=== PATIENT | female | born 1945 | race Caucasian/White ===

== ENCOUNTER 2017-03-13 20:15 | Emergency (ER) | payer MEDICARE, OTHER ==
[~2017-03-13] VITALS: Ht 177.8 cm; Wt 72.7 kg
[2017-03-13 20:25] VITALS: TEMP 97.3
[2017-03-13 20:58] LABS: BASO % 0.5 % (0.0-2.0); EOS # 0.1 (0.0-0.7); EOS % 1.4 % (0-4.0); GRAN # 3.7 (1.4-6.5); GRAN % 58.6 % (42.2-75.2); HEMOGLOBIN 14.1 g/dl (12.5-16.0); LYMPH # 1.8 (1.2-3.4); LYMPH % 28.5 % (20.0-51.0); MEAN CELL VOLUME 91 fl (80.0-100.0); MEAN CORPUSCULAR HEMOGLOBIN 30 pg (27.0-31.0); MEAN CORPUSCULAR HGB CONC 33 g/dl (33.0-37.0); MEAN PLATELET VOLUME 10.4 fl (7.4-10.4); MONO # 0.7 (0.1-0.6); MONO % 10.8 % (1.7-9.3); PLATELET COUNT 208 K/mm3 (130-400); RED BLOOD COUNT 4.74 M/mm3 (4.10-5.30); WHITE BLOOD COUNT 6.4 K/mm3 (4.8-10.8)
[2017-03-13 21:01] LABS: PROTHROMBIN TIME 11.9 SECONDS (9.7-12.8)
[2017-03-13 21:08] LABS: ALANINE AMINOTRANSFERASE 33 U/L (9-52); ALBUMIN 4.8 gm/dL (3.5-5.0); ALKALINE PHOSPHATASE 83 U/L (50-136); ANION GAP 11 mmol/L (7-16); BILIRUBIN,TOTAL 0.7 mg/dL (0.0-1.0); BLOOD UREA NITROGEN 22 mg/dL (7-17); CALCIUM 10.6 mg/dL (8.4-10.2); CARBON DIOXIDE 26 mmol/L (22-30); CHLORIDE 103 mmol/L (98-107); CREATININE, serum 0.91 mg/dL (0.52-1.25); GLUCOSE 104 mg/dL (74-106); LIPASE 226 U/L (23-300); POTASSIUM 3.6 mmol/L (3.4-5.0); SODIUM 140 mmol/L (137-145); TOTAL PROTEIN 7.7 gm/dL (6.4-8.2)
[2017-03-13 21:09] LABS: PARTIAL THROMBOPLASTIN TIME 29.7 SECONDS (26.0-37.0)
[2017-03-13 21:19] LABS: B-TYPE NATRIURETIC PEPTIDE 76 pg/mL (0-125)
[2017-03-13 21:20] LABS: TROPONIN-I < 0.012 ng/mL (0.000-0.034)
[2017-03-13] MEDS ORDERED: CLARITIN 1010 MG/TAB PO (21:20)
[2017-03-13] MEDS ORDERED: FLONASEALLERGY NS (21:21)
[2017-03-13 22:00] LABS: COLLECTION METHOD CLEAN CATCH
[2017-03-13 22:11] LABS: THYROID STIMULATING HORMONE 1.67 uIU/mL (0.465-4.680)
[2017-03-13 22:17] LABS: PH 5 (5-8); SQUAMOUS EPITHELIAL 0-2 /hpf; URINE APPEARANCE Clear; URINE BACTERIA Rare /hpf; URINE BILIRUBIN Negative (NEGATIVE); URINE BLOOD 1+ (NEGATIVE); URINE COLOR Yellow; URINE GLUCOSE Negative (NEGATIVE); URINE KETONE Negative (NEGATIVE); URINE LEUKOCYTE ESTERASE 2+ (NEGATIVE); URINE PROTEIN(semi-quant) Negative (NEGATIVE); URINE RBC 0-2 /hpf; URINE UROBILINOGEN Negative (NEGATIVE)
[2017-03-13] MEDS ORDERED: TOPROL XL 50MG50 MG PO (23:35)
[2017-03-13] MEDS ORDERED: CEFTIN500 MG PO (23:35)
[2017-03-13 23:40] VITALS: BP 114/72; PULSE 72
== END 2017-03-14 00:03 | disposition home or self-care (01) ==
LOC: COL.ER 20:15
PROVIDERS: Emergency Medicine
DX: I49.1 Atrial premature depolarization (principal); N39.0 Urinary tract infection, site not specified; Z98.890 Other specified postprocedural states

== ENCOUNTER → 2018-12-13 | Outpatient (CLI) | payer MEDICARE, OTHER ==
[~2018-12-13] MED LIST: CEFTIN500 MG PO; CLARITIN 1010 MG/TAB PO; FLONASEALLERGY NS; TOPROL XL 50MG50 MG PO
[2018-12-13 11:06] LABS: CREATININE, serum 0.76 (0.52-1.25)
== END ==
LOC: COL.LAB 10:27
DX: R10.32 Left lower quadrant pain (principal)

== ENCOUNTER → 2018-12-27 | Outpatient (CLI) | payer MEDICARE, OTHER | LOC: COL.RAD 12:57 | DX: N83.202 Unspecified ovarian cyst, left side (principal); R14.3 Flatulence; Z90.49 Acquired absence of other specified parts of digestive tract; Z90.710 Acquired absence of both cervix and uterus ==

== ENCOUNTER 2019-11-21 20:06 | Emergency (ER) | payer MEDICARE, OTHER ==
[~2019-11-21] VITALS: Ht 175.3 cm; Wt 72.7 kg
[2019-11-21 20:19] VITALS: TEMP 99.2
[2019-11-21 20:53] LABS: BASO % 0.3 % (0.0-2.0); EOS % 0.6 % (0-4.0); GRAN # 4.9 (1.4-6.5); GRAN % 71.7 % (42.2-75.2); HEMATOCRIT 41.7 % (37.0-47.0); HEMOGLOBIN 13.3 g/dl (12.5-16.0); LYMPH # 1.3 (1.2-3.4); LYMPH % 18.5 % (20.0-51.0); MEAN CELL VOLUME 91 fl (80.0-100.0); MEAN CORPUSCULAR HEMOGLOBIN 29 pg (27.0-31.0); MEAN CORPUSCULAR HGB CONC 32 g/dl (33.0-37.0); MEAN PLATELET VOLUME 10.1 fl (7.4-10.4); MONO # 0.6 (0.1-0.6); MONO % 8.6 % (1.7-9.3); PLATELET COUNT 194 K/mm3 (130-400); RED BLOOD COUNT 4.57 M/mm3 (4.10-5.30); REDCELL DISTRIBUTION WIDTH-CV 13.2 % (11.5-14.5)
[2019-11-21 21:35] LABS: ALANINE AMINOTRANSFERASE 15 U/L (4-34); ALBUMIN 4.4 gm/dL (3.5-5.0); ALKALINE PHOSPHATASE 65 U/L (50-136); ANION GAP 7 mmol/L (7-16); AST,SGOT 35 U/L (15-37); BILIRUBIN,TOTAL 0.7 mg/dL (0.0-1.0); BLOOD UREA NITROGEN 10 mg/dL (7-17); CALCIUM 9.7 mg/dL (8.4-10.2); CARBON DIOXIDE 27 mmol/L (22-30); CHLORIDE 104 mmol/L (98-107); CREATININE, serum 0.85 (0.52-1.25); GLUCOSE 133 mg/dL (74-106); POTASSIUM 4.1 mmol/L (3.4-5.0); SODIUM 138 mmol/L (137-145); TOTAL PROTEIN 7.5 gm/dL (6.4-8.2)
[2019-11-21 21:53] LABS: C-REACTIVE PROTEIN < 0.5 mg/dL (0.0-0.9); TROPONIN-I < 0.012 ng/mL (0.000-0.035)
[2019-11-21] MEDS ORDERED: ANTIVERT 25MG25 MG PO (22:32)
[2019-11-22 00:19] VITALS: BP 132/68; PULSE 88
== END 2019-11-22 00:19 | disposition home or self-care (01) ==
LOC: COL.ER 20:06
PROVIDERS: Emergency Medicine
DX: R42 Dizziness and giddiness (principal); R51 Headache; I10 Essential (primary) hypertension
CPT/HCPCS: J2060; J2405; J7030

== ENCOUNTER 2020-02-22 14:27 | Observation (INO) | payer MEDICARE, OTHER ==
[~2020-02-22] VITALS: Ht 175.3 cm; Wt 70.0 kg
[~2020-02-22 14:27] MED LIST changes: +ANTIVERT 25MG25 MG PO
[2020-02-22] MEDS ORDERED: LEVSIN0.125 M1 PO (14:46)
[2020-02-22] MEDS ORDERED: CARDIZEM 30MG T30 MG PO (14:47)
[2020-02-22] MEDS ORDERED: CELEXA10 MG PO (14:47)
[2020-02-22 15:09] LABS: BASO % 0.2 % (0.0-2.0); EOS % 0.1 % (0-4.0); GRAN # 7.5 (1.4-6.5); HEMATOCRIT 44.9 % (37.0-47.0); HEMOGLOBIN 14.5 g/dl (12.5-16.0); LYMPH % 10.2 % (20.0-51.0); MEAN CELL VOLUME 91 fl (80.0-100.0); MEAN CORPUSCULAR HEMOGLOBIN 29 pg (27.0-31.0); MEAN CORPUSCULAR HGB CONC 32 g/dl (33.0-37.0); MEAN PLATELET VOLUME 10.4 fl (7.4-10.4); MONO # 1.2 (0.1-0.6); MONO % 12.2 % (1.7-9.3); PLATELET COUNT 293 K/mm3 (130-400); RED BLOOD COUNT 4.96 M/mm3 (4.10-5.30); REDCELL DISTRIBUTION WIDTH-CV 13.1 % (11.5-14.5)
[2020-02-22 15:19] LABS: ALBUMIN 4.5 gm/dL (3.5-5.0); BILIRUBIN,TOTAL 1.2 mg/dL (0.0-1.0); C-REACTIVE PROTEIN 1.1 mg/dL (0.0-0.9); CREATININE, serum 0.91 (0.52-1.25); TOTAL PROTEIN 7.5 gm/dL (6.4-8.2)
[2020-02-22 19:29] VITALS: BP 120/94; PULSE 89; TEMP 99.8
--- NOTE | 2020-02-22 22:31 | NUR ---
Patient up from ED around 1914. Assessment and med rec done and oriented patient to room. Patient's came and visited until 1999. Started NS at 125 ml/hr. Patient reports having diarrhea and states pain is tolerable.
[2020-02-23 00:13] VITALS: BP 120/72; PULSE 74; TEMP 97.8
[2020-02-23 03:57] VITALS: BP 123/68; PULSE 68; TEMP 98.5
--- NOTE | 2020-02-23 06:07 | NUR ---
Patient sleeping in bed. Patient denied the need for any pain medication throughout the night.
[2020-02-23 07:46] VITALS: BP 132/71; PULSE 71; TEMP 97.9
--- NOTE | 2020-02-23 08:00 | NUR ---
PATIENT IS A&O. VSS. PATIENT UP INDEPENDENTLY IN ROOM. ONLY COMPLAINT IS A SL HEADACHE THIS AM. PATIENT DENIES FREQUENT CAFFEINE INTAKE. GAVE PRN TYLENOL WITH AM MEDS. HEAD TO TOE ASSESSMENT WNL. PATIENT REPORTS DIARRHEA FOR 2 DAYS. ABD IS ROUND, SOFT AND WITH POSITIVE BOWL SOUNDS. PATIENT IS PASSING GAS. NO C/O N/V. IV FLUIDS INFUSING INTO LEFT AC IV VIA PUMP. NO OTHER NEEDS AT THIS TIME. CALL LIGHT IN REACH.
[2020-02-23 08:32] LABS: HEMATOCRIT 37.8 % (37.0-47.0); MEAN CELL VOLUME 93 fl (80.0-100.0); MEAN CORPUSCULAR HEMOGLOBIN 29 pg (27.0-31.0); MEAN CORPUSCULAR HGB CONC 31 g/dl (33.0-37.0); MEAN PLATELET VOLUME 10.8 fl (7.4-10.4); PLATELET COUNT 207 K/mm3 (130-400); RED BLOOD COUNT 4.05 M/mm3 (4.10-5.30); REDCELL DISTRIBUTION WIDTH-CV 13.2 % (11.5-14.5)
[2020-02-23 08:38] LABS: HEMOGLOBIN 11.7 g/dl (12.5-16.0)
[2020-02-23 08:55] LABS: CALCIUM 8.4 mg/dL (8.4-10.2); CREATININE, serum 0.76 (0.52-1.25); POTASSIUM 4.3 mmol/L (3.4-5.0)
--- NOTE | 2020-02-23 09:55 | NUR ---
DR.DOERING GORDILLO, SEE ORDERS.
[2020-02-23 11:58] VITALS: BP 138/81; PULSE 70; TEMP 97.6
--- NOTE | 2020-02-23 13:09 | NUR ---
Chaplain carrington and offered support with patient.
--- NOTE | 2020-02-23 14:52 | NUR ---
Plan to return home, client reports being independent. Pt indicated Granddaughter Lorene Guzman as emr contact. Patient shares her pcp is Dr. Castelan and rx obtained at [facility].Patient denies needing or having any DME, HHS, or skilled services. DPOA is troy Jackson . Denies any care concerns. Will continue to follow.
[2020-02-23 15:55] VITALS: BP 140/78; PULSE 67; TEMP 97.7
--- NOTE | 2020-02-23 18:15 | NUR ---
PATIENT DISCHARGING HOME AFTER SUPER. PATIENT TOLERATING LIQUID DIET. INSTRUCTED PATIENT ABOUT LOW FIBER DIET TOMORROW AND EASING INTO HER DIET. GAVE DISCHARGE INSTRUCTIONS AND ANSWERED QUESTIONS. DC'D LEFT AC IV, COVERED SITE WITH LEONIDAS & DIMITRIS. PATIENT DRESSED AND PACKED HER PERSONAL BELONGINGS. PATIENT ESCORTED OUT.
== END 2020-02-23 18:15 | disposition home or self-care (01) ==
LOC: COL.ER 14:27 → SURG 16:06
PROVIDERS: Emergency Medicine; ADMIT Surgery
DX: K56.609 Unspecified intestinal obstruction, unspecified as to partial versus complete obstruction (principal); Z90.49 Acquired absence of other specified parts of digestive tract; Z90.710 Acquired absence of both cervix and uterus; Z20.828 Contact with and (suspected) exposure to other viral communicable diseases
CPT/HCPCS: G0378; J2405; J2550; J7030; Q9967